=== PATIENT | male | born 1965 | race Caucasian/White ===

== ENCOUNTER 2019-06-11 09:36 | Outpatient (CLI) | payer OTHER ==
--- NOTE | 2019-06-11 11:54 | ULT ---
US Gallbladder RUQ: 06/11/2019 12:00 AM CLINICAL HISTORY: Right upper quadrant abdominal pain. STUDY: Limited right upper quadrant ultrasound of abdomen. COMPARISON: None. FINDINGS: Liver: Size: Normal. Echogenicity: Increased Contour: Smooth. Mass: None. Bile ducts: No intrahepatic or extrahepatic biliary dilatation. Common bile duct measures 6 mm. Gallbladder: Cholelithiasis. Pancreas: Head, body, and tail appear normal. Right kidney: No pelvicalyceal dilatation. There is a questionable mass versus lobulated cortex in th e superior pole the right kidney. This measures approximately 3.4 cm in greatest dimension. Right kidney measuring 11.6 cm in length. IMPRESSION: 1. Cholelithiasis 2. Fatty liver 3. Possible mass versus lobulation in the right kidney. A CT of the abdomen is recommended for furthe r evaluation.
== END 2019-06-11 09:37 | disposition home or self-care (01) ==
LOC: ULT 09:36
PROVIDERS: ATTEND Internal Medicine
DX: R10.11 Right upper quadrant pain (principal); K76.0 Fatty (change of) liver, not elsewhere classified; K80.20 Calculus of gallbladder without cholecystitis without obstruction
CPT/HCPCS: 76705

== ENCOUNTER 2019-06-18 13:56 | Outpatient (CLI) | payer OTHER ==
[2019-06-18] MEDS ORDERED: ISOVUE-370 76%-LOCM 1 ML ONE (14:39)
--- NOTE | 2019-06-18 14:55 | CT ---
CT abdomen with and without IV contrast HISTORY: Renal lesion. Abnormal sonogram. FINDINGS: Each renal collecting system is decompressed without stone apparent. Projecting laterally f rom the superior pole of the right kidney is a rounded simple cyst measuring up to 1.9 cm. No solid masses are evident. No abnormalities are seen with reliably explain the area of concern on recent son ogram. Left kidney is normal appearance. No abnormal filling defects within the urinary collecting system of either kidney. Calcification in the arterial structures with fusiform ectasia of the lower abdominal aorta. The pelvis was not imaged. No evidence of bowel obstruction. IMPRESSION: Small right renal cyst. No solid masses are apparent. No evidence of urinary tract obstruction. Atherosclerosis.
== END 2019-06-18 13:57 | disposition home or self-care (01) ==
LOC: BICCT 13:56
PROVIDERS: ATTEND Internal Medicine
DX: R10.11 Right upper quadrant pain (principal); N28.9 Disorder of kidney and ureter, unspecified; N28.1 Cyst of kidney, acquired; I70.90 Unspecified atherosclerosis
CPT/HCPCS: 74170; Q9966

== ENCOUNTER 2022-01-06 15:06 | Outpatient (CLI) | payer BC, OTHER | END 2022-01-06 15:07 | disposition home or self-care (01) | LOC: BICRAD 15:06 | PROVIDERS: ATTEND Family Medicine | DX: M47.22 Other spondylosis with radiculopathy, cervical region (principal) | CPT/HCPCS: 72040 ==

== ENCOUNTER 2022-12-27 07:32 | Outpatient (CLI) | payer BC | END 2022-12-27 07:33 | disposition home or self-care (01) | LOC: TBSIIMAG 07:32 | PROVIDERS: ATTEND Family Medicine | DX: M54.2 Cervicalgia (principal); M47.812 Spondylosis without myelopathy or radiculopathy, cervical region; M50.321 Other cervical disc degeneration at C4-C5 level; M48.02 Spinal stenosis, cervical region | CPT/HCPCS: 72141 ==